=== PATIENT | female | born 1980 | race Caucasian/White ===

== ENCOUNTER 2020-07-15 07:27 | Outpatient (REF) | payer OTHER, SELFPAY ==
[2020-07-15 08:01] LABS: COVID-19 Test Negative (Negative); IDNOW Serial# 55D5AD1C
== END 2020-07-15 07:28 | disposition home or self-care (01) ==
LOC: HO.EMPCOV 07:27
PROVIDERS: Visit Provider Internal Medicine
DX: Z20.828 Contact with and (suspected) exposure to other viral communicable diseases (principal)
CPT/HCPCS: 87635; C9803

== ENCOUNTER 2020-08-02 07:23 | Outpatient (REF) | payer OTHER, SELFPAY ==
[2020-08-02 08:15] LABS: COVID-19 Test Negative (Negative)
== END 2020-08-02 07:24 | disposition home or self-care (01) ==
LOC: HO.EMPCOV 07:23
PROVIDERS: Visit Provider Internal Medicine
DX: Z20.828 Contact with and (suspected) exposure to other viral communicable diseases (principal)
CPT/HCPCS: 87635; C9803

== ENCOUNTER 2020-08-15 07:21 | Outpatient (REF) | payer OTHER, SELFPAY ==
[2020-08-15 07:38] LABS: COVID-19 Test Negative (Negative)
== END 2020-08-15 07:22 | disposition home or self-care (01) ==
LOC: HO.EMPCOV 07:21
PROVIDERS: Visit Provider Internal Medicine
DX: Z20.822 Contact with and (suspected) exposure to COVID-19 (principal)
CPT/HCPCS: 36415; 87635; C9803

== ENCOUNTER 2020-09-29 07:33 | Outpatient (REF) | payer OTHER, SELFPAY ==
[2020-09-29 07:52] LABS: COVID-19 Test Negative (Negative)
== END 2020-09-29 07:34 | disposition home or self-care (01) ==
LOC: HO.EMPCOV 07:33
PROVIDERS: Visit Provider Internal Medicine
DX: Z20.822 Contact with and (suspected) exposure to COVID-19 (principal)
CPT/HCPCS: 36415; 87635; C9803

== ENCOUNTER 2021-05-03 08:41 | Outpatient (REF) | payer OTHER, SELFPAY ==
[2021-05-03 12:11] LABS: HCG Quantitative 54477 mIU/mL
== END 2021-05-03 08:42 | disposition home or self-care (01) ==
LOC: HO.HMGCLDS 08:41
PROVIDERS: Visit Provider Internal Medicine
DX: N92.6 Irregular menstruation, unspecified (principal)
CPT/HCPCS: 36415; 84702

== ENCOUNTER 2021-06-12 09:02 | Outpatient (REF) | payer OTHER, SELFPAY ==
[2021-06-12 11:45] LABS: Hematocrit 37.7 % (37.0-47.0); Mean Corpuscular HGB Conc 31.8 g/dl (31.0-35.0); Mean Corpuscular Hemoglobin 27.7 pg (27.0-33.0); Mean Corpuscular Volume 87.1 fL (80.0-98.0); Mean Platelet Volume 11.5 fL (9.4-12.3); Platelet Count 256 X10*3/uL (160-400); Red Blood Count 4.33 X10*6/uL (4.20-5.50); Red Cell Distribution Width 15.1 % (11.0-16.0); White Blood Count 5.5 X10*3/uL (4.8-10.8)
[2021-06-12 12:20] LABS: HBsAGNum1 0.21 S/CO (0.00-0.99); HIV AB/AG Nonreactive (Nonreactive); HIV Num 1 0.06 S/CO (0.00-0.99); Hepatitis B Surface Antigen Negative (Negative); ~Hepatitis C Antibody Nonreactive (Nonreactive)
[2021-06-12 12:21] LABS: Syphilis Screen Nonreactive (Nonreactive)
[2021-06-13 13:50] LABS: Rubella IgG Antibody 4.89 Index
== END 2021-06-12 09:03 | disposition home or self-care (01) ==
LOC: HO.HMGCLDS 09:02
PROVIDERS: Visit Provider Advanced Practice Midwife
DX: Z34.01 Encounter for supervision of normal first pregnancy, first trimester (principal)
CPT/HCPCS: 36415; 85027; 86762; 86780; 86803; 87340; 87389